=== PATIENT | female | born 1950 | race Caucasian/White ===

== ENCOUNTER → 2020-12-07 | Outpatient (CLI) | payer MEDICARE, OTHER ==
[~2020-12-07] MED LIST: ALLEGRA ALLERG180 MG PO; ECOTRIN81 MG PO; FLONASE 0.05% N16 GM; FLURBIPROFEN100 MG PO; MEDROL4 MG PO; PLAQUENIL200 MG PO; PLAVIX 75 MG TA75 MG PO; PRAVACHOL40 MG PO; PROAIR HFA8.5 GM INH; SINGULAIR10 MG PO; SPIRIVA RESPIMAT4 GM INH; SYMBICORT 16010.2 GM INH; SYNTHROID 137137 MCG PO; VIBRAMYCIN100 MG PO
== END ==
LOC: KOH-I 10:23
DX: Z87.891 Personal history of nicotine dependence (principal); R91.1 Solitary pulmonary nodule
CPT/HCPCS: 71271